=== PATIENT | male | born 1960 | race Caucasian/White ===

== ENCOUNTER 2018-07-18 14:21 | Emergency (ER) | payer OTHER, BC ==
[2018-07-18] MEDS ORDERED: Ketorolac 30 MG/ML SDV IM ONE (14:32)
--- NOTE | 2018-07-18 14:38 | EDM.PDOC ---
ED HPI GENERAL MEDICAL PROBLEM - General Chief Complaint: Upper Extremity Injury/Pain Stated Complaint: ELBOW INJURIES Time Seen by Provider: 07/18/18 14:27 Source of Information: Reports: Patient History Limitations: Reports: No Limitations - History of Present Illness INITIAL COMMENTS - FREE TEXT/NARRATIVE: 58 y/o male presented to ER with cc left elbow pain. He reports he lifted his buckner on his work truck that was covered with snow and immediately felt a sharp stabbing pain in his left elbow. He reports a few minutes later he felt like his hand was numb and stiff. He states he felt like his had was stuck in a "claw position." He reports he is right handed. He states his symptoms have resolved since the event, however, he is concerned and wants to make sure everything is alright. He has not taken anything for pain prior to arrival. Onset: Today Onset Date: 07/18/18 Onset Time: 14:00 Duration: Resolved Prior to Arrival Location: Reports: Upper Extremity, Left Quality: Reports: Ache Severity: Mild Improves with: Reports: None Worsens with: Reports: None Associated Symptoms: Reports: Weakness. Denies: Chest Pain, Cough, Fever/Chills , Nausea/Vomiting, Rash, Shortness of Breath, Syncope Left Elbow Pain Score (Numeric/FACES): 3 - Related Data Allergies Allergy/AdvReac Type Severity Reaction Status Date / Time No Known Allergies Allergy Verified 07/18/18 14:34 Home Meds: Home Meds Lisdexamfetamine Dimesylate [Vyvanse] 70 mg PO DAILY 07/18/18 [History] Lisinopril 10 mg PO DAILY 07/18/18 [History] Naproxen [Naprosyn] 500 mg PO Q12HR PRN 10 Days #20 tab 07/18/18 [Rx] Simvastatin 20 mg PO DAILY 07/18/18 [History] Review of Systems - Review of Systems Review Of Systems: See Below Constitutional: Reports: No Symptoms Eyes: Reports: No Symptoms Ears: Reports: No Symptoms Nose: Reports: No Symptoms Mouth/Throat: Reports: No Symptoms Respiratory: Reports: No Symptoms Cardiovascular: Reports: No Symptoms GI/Abdominal: Reports: No Symptoms Genitourinary: Reports: No Symptoms Musculoskeletal: Reports: Joint Pain (left elbow pain) Skin: Reports: No Symptoms Neurological: Reports: No Symptoms Psychiatric: Reports: No Symptoms ED EXAM, GENERAL - Physical Exam Exam: See Below Exam Limited By: No Limitations General Appearance: Alert, WD/WN, No Apparent Distress Peripheral Pulses: 4+: Brachial (L), Brachial (R), Radial (L), Radial (R) Extremities: Normal Inspection, Normal Range of Motion, No Pedal Edema, Normal Capillary Refill, Other (tenderness noted at olecranon areal with deep palpation. He has full ROM, neurovascular intact.). No: Increased Warmth, Redness Neurological: Alert, Oriented, CN II-XII Intact, Normal Cognition, Normal Gait Psychiatric: Normal Affect, Normal Mood Skin Exam: Warm, Dry, Intact, Normal Color, No Rash Lymphatic: No Adenopathy Course - Vital Signs Last Recorded V/S: Last Vital Signs Temp 98.2 F 07/18/18 14:32 Pulse 85 07/18/18 14:32 Resp 20 07/18/18 14:32 BP 129/92 H 07/18/18 14:32 Pulse Ox 100 07/18/18 14:32 - Orders/Labs/Meds Meds: Medications Discontinued Medications Generic Name Dose Route Start Last Admin Trade Name Paul PRN Reason Stop Dose Admin Ketorolac Tromethamine 60 mg 07/18/18 14:32 07/18/18 14:39 Toradol IM 07/18/18 14:33 60 mg ONETIME ONE Administration - Re-Assessments/Exams Free Text/Narrative Re-Assessment/Exam: 07/18/18 14:44 58 y/o male presents to ER with cc left elbow pain after lifting buckner of his truck that was covered with snow. I don't feel he needs x-rays at this time. I feel his pain is due to tendon spasm and muscle strain. He received Toradol injection and his condition improved. I do not feel he needs further testing at this time. He is able to go back to work with no restrictions. I instructed him to follow up with his employer medical provider. Instructed to alternate ice and heat no more than 20 minutes at a time and to take Naprosyn as needed. Instructed to return to the ER for any new or acute worsening symptoms. He verbalized understanding and is comfortable with plan for discharge. Departure - Departure Time of Disposition: 15:06 Disposition: Home, Self-Care 01 Condition: Good Clinical Impression: Elbow strain Qualifiers: Encounter type: initial encounter Laterality: left Qualified Code(s): S46.912A - Strain of unspecified muscle, fascia and tendon at shoulder and upper arm level, left arm, initial encounter - Discharge Information Prescriptions: Naproxen [Naprosyn] 500 mg PO Q12HR PRN 10 Days #20 tab PRN Reason: elbow pain Instructions: Muscle Strain, [id number], Elastic Bandage and RICE, Tendinitis , [id number] Referrals: PCP,None [Primary Care Provider] - Forms: ED Department Discharge Additional Instructions: You have been diagnosis with elbow strain. I don't feel you need x-rays or further testing at this time. I recommend you use ice or heat 20 minutes at a time as needed. You can take Naprosyn for the pain. Follow up with your employee health provider. Return to the ER for any new or acute worsening symptoms.
== END 2018-07-18 15:14 | disposition home or self-care (01) ==
LOC: JD.ED 14:21
DX: S46.912A Strain of unspecified muscle, fascia and tendon at shoulder and upper arm level, left arm, initial encounter (principal); Z79.899 Other long term (current) drug therapy; X50.0XXA Overexertion from strenuous movement or load, initial encounter; Y99.0 Civilian activity done for income or pay
CPT/HCPCS: 96372; 99283; J1885